=== PATIENT | female | born 1955 | race Caucasian/White ===

== ENCOUNTER 2016-03-15 07:11 | Emergency (ER) | payer BC ==
[2016-03-15] MEDS ORDERED: Sodium Chloride 0.9% 1,000 ML IV ONE (07:23)
[2016-03-15] MEDS ORDERED: Ondansetron 4 MG/2 ML SDV IVPUSH ONE (07:24)
[2016-03-15 07:38] LABS: BASOPHILS PERCENT AUTO 0.3 % (0.2-1.2); EOSINOPHILS PERCENT AUTO 0.7 % (0.0-4.0); HEMATOCRIT 42.2 % (33.0-47.0); HEMOGLOBIN 14.4 g/dL (12.0-16.0); LYMPHOCYTES PERCENT AUTO 15.5 % (25.0-50.0); MEAN CORPUSCULAR HEMOGLOBIN 28.6 pg (26.0-32.0); MEAN CORPUSCULAR HGB CONC 34.1 g/dL (32.0-36.0); MEAN CORPUSCULAR VOLUME 83.7 fL (78.0-93.0); MONOCYTES PERCENT AUTO 4.2 % (2.0-11.0); NEUTROPHILS PERCENT AUTO 79.3 % (50.0-80.0); RED BLOOD CELL COUNT 5.04 x10^6/uL (4.00-5.50)
[2016-03-15 07:41] VITALS: BP 130/90
[2016-03-15 07:52] LABS: CHLORIDE,CL 103 mmol/L (98-107); CREATININE 0.8 mg/dL (0.55-1.02); EST CRCL DRUG DOSING (CG) 65.38 mL/min; ESTIMATED GFR > 60; GLUCOSE RANDOM 133 mg/dL (74-106)
[2016-03-15] MEDS ORDERED: Promethazine 25 MG/ML SDV IM ONE (08:07)
--- NOTE | 2016-03-15 08:07 | EDM.PDOC ---
ED HPI RENAL/ - General Chief Complaint: Gastrointestinal Problem Stated Complaint: pelvic pressure abd cramping nausea vomitting about 8-10 x started about 3am 7/10 cramping pressure Time Seen by Provider: 03/15/16 07:35 Source of Information: Reports: Patient, Family History Limitations: Reports: No limitations - History of Present Illness Symptom Onset Date: 03/15/16 Symptom Onset Time: 03:00 Location: Reports: suprapubic Quality: Reports: cramping, fullness Severity: moderate Improves with: Reports: lying down Associated Symptoms: Reports: frequency, urgency. Denies: burning, dysuria, hesitancy, unable to urinate, fever/chills (pt seen by pcp yesterday DX with UTI started on cipro had 2 doses has taken before last UTI 1 yr ago or so same jeremie s/s ) - Related Data Allergies/ADRs: Allergies Allergy/AdvReac Type Severity Reaction Status Date / Time Sulfa (Sulfonamide Allergy Rash Verified 03/15/16 07:37 Antibiotics) Home Meds: Home Meds Ciprofloxacin HCl [Cipro] 500 mg PO BID 03/15/16 [History] Ondansetron [Zofran ODT] 4 mg PO Q4H 4 Days 03/15/16 [Rx] Promethazine [Phenergan] 25 mg PO Q6H #20 tablet 03/15/16 [Rx] Past Medical History - Past Health History Medical/Surgical History: Denies Medical/Surgical History HEENT History: Reports: None Cardiovascular History: Reports: None Respiratory History: Reports: None Gastrointestinal History: Denies: Bowel obstruction, Chronic diarrhea, Diverticulosis, Gastritis, Inflammatory bowel disease, Irritable bowel syndrome Genitourinary History: Reports: UTI, recurrent. Denies: Acute renal failure, Chronic renal insuffiency, Hydronephrosis, Urinary incontinence Musculoskeletal History: Reports: None Neurological History: Reports: None Psychiatric History: Reports: None Endocrine/Metabolic History: Denies: Diabetes, type I, Diabetes, type II Hematologic History: Reports: None Immunologic History: Denies: Immunosuppression - Past Surgical History GI Surgical History: Reports: None Female Surgical History: Reports: section Social & Family History - Family History Family Medical History: Noncontributory - Tobacco Use Smoking Status *Q: Never Smoker ED ROS GENERAL - Review of Systems Review Of Systems: See Below Constitutional: Reports: decreased appetite. Denies: fever, chills, malaise, weakness, fatigue, night sweats, diaphoresis HEENT: Reports: No symptoms Respiratory: Reports: no symptoms Cardiovascular: Reports: No symptoms Endocrine: Reports: no symptoms GI/Abdominal: Reports: Decreased appetite, Nausea, Vomiting. Denies: Abdominal pain, Constipation, Diarrhea, Flatus : Reports: frequency. Denies: dysuria, flank pain, hematuria, pain Musculoskeletal: Reports: no symptoms Neurological: Reports: no symptoms. Denies: dizziness, headache, numbness Psychiatric: Reports: No symptoms Hematologic/Lymphatic: Reports: no symptoms Immunologic: Reports: no symptoms ED EXAM, RENAL/ - Physical Exam Exam: See Below Exam Limited By: No limitations General Appearance: alert, WD/WN, no apparent distress, other (pt lying on left side but able to ly back for exam no discomfort ) Eye Exam: bilateral eye: PERRL Nose: normal mucosa Throat/Mouth: Normal inspection, Normal teeth, Normal gums, Other (dry MM ) Head: atraumatic, normocephalic Neck: normal inspection, supple, non-tender, full range of motion. No: limited range of motion, lymphadenopathy (L) Respiratory/Chest: no respiratory distress, lungs clear, normal breath sounds, no accessory muscle use, chest non-tender Cardiovascular: regular rate, rhythm, no edema, no gallop, no JVD GI/Abdominal: normal bowel sounds, soft, non tender, no organomegaly, no distention, no abnormal bruit, no mass. No: distended, guarding, rebound, tender (neg pelvic rock heel slap ) Back Exam: full range of motion. No: CVA tenderness (L), CVA tenderness (R), decreased range of motion Extremities: normal inspection, normal range of motion, non-tender, no pedal edema, normal capillary refill Neurological: alert, oriented, CN II-XII intact, normal cognition, no motor/ sensory deficits Psychiatric: normal affect, normal mood Skin Exam: Warm, Dry, Intact, Normal color, No rash Course - Vital Signs Text/Narrative:: pt given NS bolus and NS with [id number] zofran 8mg first and 25 IM phenergan pt rechecked feels some better nausea much better labs WNL reviewed UA small jaxon neg nit CS not resulted yet rechecked pt after meds feels much better explained need for f/u and finish meds will give zofran 4mg odt q 4-6hrs #20 and phenergan 25mg po q 4-6 prn #20 Last Recorded V/S: Last Vital Signs Temp 36.2 C 03/15/16 07:38 Pulse 86 03/15/16 07:38 Resp 18 03/15/16 07:38 BP 130/90 03/15/16 07:38 Pulse Ox 98 03/15/16 07:38 - Orders/Labs/Meds Orders: Active Orders 24 hr Category Date Time Status NS + KCl 20mEq/L [Normal Saline with 20 mEq KCl] 1,000 Med 03/15/16 08:15 Active ml IV ASDIRECTED Medication Orders Potassium Chloride/Sodium Chloride (Normal Saline With 20 Meq Kcl) 1,000 mls @ 500 mls/hr IV ASDIRECTED ELIE Last Admin: 03/15/16 08:26 Dose: 500 mls/hr Labs: Laboratory Tests 03/15/16 03/15/16 Range/Units 07:30 07:30 WBC 8.6 (4.0-10.0) x10^3/uL RBC 5.04 (4.00-5.50) x10^6/uL Hgb 14.4 (12.0-16.0) g/dL Hct 42.2 (33.0-47.0) % MCV 83.7 (78.0-93.0) fL MCH 28.6 (26.0-32.0) pg MCHC 34.1 (32.0-36.0) g/dL RDW Coeff of Nellie 13.0 (10.0-15.0) % Plt Count 227 (130-400) x10^3/uL Neut % (Auto) 79.3 (50.0-80.0) % Lymph % (Auto) 15.5 L (25.0-50.0) % [place] % (Auto) 4.2 (2.0-11.0) % Eos % (Auto) 0.7 (0.0-4.0) % Baso % (Auto) 0.3 (0.2-1.2) % Sodium 139 (136-145) mmol/L Potassium 3.5 (3.5-5.1) mmol/L Chloride 103 (98-107) mmol/L Carbon Dioxide 28 (21-32) mmol/L BUN 11 (7-18) mg/dL Creatinine 0.8 (0.55-1.02) mg/dL Est Cr Clr Drug Dosing 65.38 mL/min Estimated GFR (MDRD) > 60 Glucose 133 H (74-106) mg/dL Calcium 9.0 (8.5-10.1) mg/dL Meds: Medications Generic Name Dose Route Start Last Admin Trade Name Freq PRN Reason Stop Dose Admin Potassium Chloride/Sodium Chloride 1,000 mls @ 500 mls/hr 03/15/16 08:15 12/20 08:26 Normal Saline With 20 Meq Kcl IV 500 mls/hr ASDIRECTED ELIE Administration Discontinued Medications Generic Name Dose Route Start Last Admin Trade Name Freq PRN Reason Stop Dose Admin Sodium Chloride 1,000 mls @ 999 mls/hr 03/15/16 07:23 03/15/16 07:30 Normal Saline IV 03/15/16 08:23 999 mls/hr .BOLUS ONE Administration Ketorolac Tromethamine 30 mg 03/15/16 09:06 03/15/16 09:15 Toradol IVPUSH 03/15/16 09:07 30 mg ONETIME ONE Administration Ondansetron HCl 4 mg 03/15/16 07:24 03/15/16 07:30 Zofran IVPUSH 03/15/16 07:25 4 mg ONETIME ONE Administration Promethazine HCl 25 mg 03/15/16 08:07 03/15/16 08:25 Phenergan IM 03/15/16 08:08 25 mg ONETIME ONE Administration Departure - Departure Time of Disposition: 10:20 Disposition: Home, Self-Care 01 Condition: good Clinical Impression: Dehydration, UTI (urinary tract infection), Vomiting Prescriptions: Ondansetron [Zofran ODT] 4 mg PO Q4H 4 Days Promethazine [Phenergan] 25 mg PO Q6H #20 tablet Instructions: Nausea and Vomiting, Adult, [id number], Dehydration, Adult, [id number] Referrals: Doris Shelton PA-C [Primary Care Provider] - Forms: ED Department Discharge Additional Instructions: take medication as directed drink small amounts of sprit gatorade water 2-3 oz every 2-3 hrs till nausea stops eat bland foods for 2-3 days advance diet as tolorated return to ER if anything changes or gets worse fever chills back or flank pain or persistent nausea or vomiting follow uo with your primary provider in 48-72 hours - Problem List & Annotations (1) Abdominal cramping SNOMED Code(s): 72459600 Code(s): R10.9 - UNSPECIFIED ABDOMINAL PAIN Status: Acute Current Visit: Yes (2) Nausea & vomiting SNOMED Code(s): 38623371 Code(s): R11.2 - NAUSEA WITH VOMITING, UNSPECIFIED Status: Acute Current Visit: Yes (3) Dehydration SNOMED Code(s): 22604521 Code(s): E86.0 - DEHYDRATION Status: Acute Current Visit: Yes (4) Dehydration, mild SNOMED Code(s): 2358975671218 Code(s): E86.0 - DEHYDRATION Status: Acute Current Visit: Yes (5) Dehydration, mild SNOMED Code(s): 9462560963142 Code(s): E86.0 - DEHYDRATION Status: Acute Current Visit: Yes - My Orders Last 24 Hours: My Active Orders 03/15/16 08:15 NS + KCl 20mEq/L [Normal Saline with 20 mEq KCl] 1,000 ml IV ASDIRECTED - Assessment/Plan Last 24 Hours: My Active Orders 03/15/16 08:15 NS + KCl 20mEq/L [Normal Saline with 20 mEq KCl] 1,000 ml IV ASDIRECTED
[2016-03-15] MEDS ORDERED: NS + KCl 20mEq/L 1,000 ML IV SCH (08:15)
[2016-03-15] MEDS ORDERED: Ketorolac 30 MG/ML SDV IVPUSH ONE (09:06)
== END 2016-03-15 10:30 | disposition home or self-care (01) ==
LOC: VM.ED 07:11 → EDBD 07:18 → VM.ED 07:18
DX: N39.0 Urinary tract infection, site not specified (principal); E86.0 Dehydration; R11.2 Nausea with vomiting, unspecified; Z88.2 Allergy status to sulfonamides
CPT/HCPCS: 36415; 80048; 85025; 96361; 96365; 96366; 96372; 96375; 99284; J1885; J2405; J2550; J3480; J7030